=== PATIENT | female | born 1960 | race Hispanic/Latino ===

== ENCOUNTER 2022-09-09 07:07 | Day surgery (SDC) | payer OTHER, MEDICARE ==
[2022-09-06 16:35] LABS: HEMATOCRIT 32.4 % (36-48); MEAN CORPUSCULAR HEMOGLOBIN 32.2 pg (27.0-33.0); MEAN CORPUSCULAR HGB CONC 33.3 g/dL (32.0-36.0); MEAN CORPUSCULAR VOLUME 96.7 fL (79-99); PLATELET COUNT (AUTO) 150 K/uL (130-400); RED BLOOD CELL COUNT(AUTO) 3.35 MIL/uL (4.00-5.50); RED CELL DISTRIBUTION WIDTH 12.1 % (11.0-15.5); WHITE BLOOD COUNT (AUTO) 8.8 K/uL (4.8-10.8)
[2022-09-06 16:43] LABS: INR 0.98 (0.85-1.15); PROTHROMBIN TIME 10.7 SEC (9.6-11.6)
[2022-09-06 16:44] LABS: PARTIAL THROMBOPLASTIN TIME 27.5 SEC (26.3-35.5)
[2022-09-06 16:51] LABS: ALBUMIN 3.7 g/dL (3.5-5.0); CREATININE 4.2 mg/dL (0.5-1.5); POTASSIUM 4.7 mmol/L (3.5-5.1); TOTAL PROTEIN, SERUM 7.7 g/dL (6.0-8.3)
[2022-09-06 19:33] LABS: BAND NEUTROPHILS % (MANUAL) 4 % (0-2); EOSINOPHILS % (MANUAL) 3 % (1-6); LYMPHOCYTES % (MANUAL) 25 % (22-44); MONOCYTES % (MANUAL) 3 % (2-9); REACTIVE LYMPHOCYTES 2 % (0-0); SEGMENTED NEUTROPHILS % 63 % (40-70)
[2022-09-06 19:34] LABS: MAN.DIFF COMMENT-IMPRESSION MANUAL DIFFERENTIAL
[2022-09-07 14:22] VITALS: BP 220/94
[2022-09-09] VITALS (15 sets, daily range): BP systolic 137–170; BP diastolic 63–77
[~2022-09-09] VITALS: Ht 157.5 cm; Wt 79.2 kg
[2022-09-09] MEDS: CEFAZOLIN SODIUM 1 GM VIAL IVPB SCH ×2 (06:00→11:30)
[~2022-09-09 07:07] MED LIST: 0.9%NACL 1000ML 1,000 ML IV SCH; AEC81 PO; CARV6.25 PO; CHOL200013 PO; CYAN250010 PO; FOLI1TAB85 PO; GARL1000 PO; L.AC1CAP6 PO; LOSA50TA64 PO; ROSU20TA31 PO; SEVE800T7 PO; vitamin b6 PO
[2022-09-09] MEDS ORDERED: 0.9% NACL 500ML IV.SOLN 500 ML IV ONE (08:41)
[2022-09-09 08:45] LABS: CREATININE 4.4 mg/dL (0.5-1.5); POTASSIUM 4.9 mmol/L (3.5-5.1)
[2022-09-09] MEDS ORDERED: BUPIVACAINE/PF 0.5% 30ML VIAL ONE (09:23)
[2022-09-09] MEDS ORDERED: PROPOFOL 10 MG/ML 20ML VIAL IV ONE ×2 (10:58→11:23)
[2022-09-09] MEDS ORDERED: GLYCOPYRROLATE 1 MG/5 ML SYRINGE ONE (10:58)
[2022-09-09] MEDS ORDERED: LIDOCAINE PF 100MG/5ML (2%) SYRINGE 5ML ONE (10:58)
[2022-09-09] MEDS ORDERED: FENTANYL CITRATE PF 50 MCG/1 ML 2ML VIAL ONE ×2 (10:58→12:17)
[2022-09-09] MEDS ORDERED: ROCURONIUM 10MG/1ML SYR 10 MG/ML ML ONE (10:59)
[2022-09-09] MEDS ORDERED: ONDANSETRON 4MG INJ ONE (11:42)
[2022-09-09] MEDS ORDERED: NEOSTIGMINE 5MG/5ML SYR IV ONE (12:01)
[2022-09-09] MEDS ORDERED: ACETAMINOPHEN 500 MG TABLET ONE (14:31)
[2022-09-09] MEDS ORDERED: ACETAMINOPHEN 500 MG TABLET PO ONE (15:00)
[2022-09-09] MEDS ORDERED: ACETAMINOPHEN 500 MG TABLET PO SCH (15:00)
== END 2022-09-09 14:42 | disposition home or self-care (01) ==
LOC: DAH 07:07
PROVIDERS: ATTEND Student in an Organized Health Care Education/Training Program
DX: E11.22 Type 2 diabetes mellitus with diabetic chronic kidney disease (principal); Z20.822 Contact with and (suspected) exposure to COVID-19; I12.0 Hypertensive chronic kidney disease with stage 5 chronic kidney disease or end stage renal disease; N18.6 End stage renal disease; I45.10 Unspecified right bundle-branch block; J45.909 Unspecified asthma, uncomplicated; I25.10 Atherosclerotic heart disease of native coronary artery without angina pectoris; Z79.899 Other long term (current) drug therapy; Z98.890 Other specified postprocedural states; Z79.82 Long term (current) use of aspirin; Z82.49 Family history of ischemic heart disease and other diseases of the circulatory system; Z83.3 Family history of diabetes mellitus; Z99.2 Dependence on renal dialysis
CPT/HCPCS: 80053; 85025; 85610; 85730; 36415 ×2; 87635; 49324; 80048; 82948 ×2; 93005; C9803; A4663; J7040; J3010; J0690; J3490 ×2; J2710; J2001; J2704 ×2; J2405; A6204; C1769 ×2; G0168; A4930; A4215; A4223; A4222; A4221; A4600